=== PATIENT | female | born 1960 | race Caucasian/White ===

== ENCOUNTER 2019-12-31 17:58 | Emergency (ER) | payer BC, OTHER ==
[~2019-12-31] VITALS: Ht 162.5 cm; Wt 60.4 kg
--- NOTE | 2019-12-31 18:29 | ED GI ---
General Chief Complaint: Abdominal/GI Problems Stated Complaint: ABD PAIN, BLOODY STOOLS History of Present Illness Date Seen by Provider: Dec 31, 2019 Time Seen by Provider: 18:05 Initial Comments The patient is a 59-year-old female with a history of hypothyroidism and anxiety, without other chronic medical problems for which she takes daily medication. She did have an EGD completed in November per her report which was completely negative; reason for the EGD was ongoing issues with IBStype symptoms. She reports having had a colonoscopy 2 years ago which was negative aside from some degree of diverticulosis. She presents for evaluation of bloody stools with onset yesterday. Patient had one frankly bloody stool yesterday and then several more which had blood mixed in and were loose. Today she has had a couple of loose bowel movements with scant blood in them as well. She reports associated mild bilateral lower quadrant cramping (which feels like fecal urgency) before the stools, but no focal or persistent abdominal pain since onset of symptoms. She has no abdominal pain now. She denies associated fevers, nausea or vomiting, upper respiratory congestion/rhinorrhea, cough, shortness of breath or chest pain of any kind, focal abdominal pain of any kind as above, flank pain, back pain, dysuria or hematuria. Patient is alert and pleasantly and appropriately interactive and in absolute no acute distress with completely appropriate vital signs upon initial evaluation here in the emergency department. Allergies and Home Medications Allergies Coded Allergies: No Known Drug Allergies (Unverified , 12/31/19) Patient Home Medication List Home Medication List Reviewed: Yes Review of Systems Review of Systems Constitutional: see HPI All Other Systems Reviewed Negative Unless Noted: Yes Past Xbqlcyf-Gulsoj-Uxeafd Hx Past Med/Social Hx: Reviewed Nursing Past Med/Soc Hx Patient Social History Alcohol Use: Denies Use Recreational Drug Use: No Smoking Status: Current Everyday Smoker Type Used: Cigarettes 2nd Hand Smoke Exposure: No Recent Hopitalizations: No Physical Abuse: No Sexual Abuse: No Mistreated: No Fear: No Seasonal Allergies Seasonal Allergies: No Past Medical History Respiratory: No Cardiac: No Neurological: No Genitourinary: No Gastrointestinal: Yes Irritable Bowel Musculoskeletal: No Endocrine: No HEENT: No Cancer: No Psychosocial: Yes Anxiety Integumentary: No Blood Disorders: No Family Medical History Reviewed Nursing Family Hx Physical Exam Vital Signs Vital Signs - First Documented 12/31/19 18:03 Temp 36.2 Pulse 105 Resp 16 B/P (MAP) 139/66 (90) Pulse Ox 97 O2 Delivery Room Air Capillary Refill : Height/Weight/BMI Height: '" Weight: lbs. oz. kg; BMI Method: General Appearance: no apparent distress Exam Comments This is an older female appearing nontoxic and in no acute distress. Head is normocephalic and atraumatic. Neck is supple and nontender. Oropharynx is moist. Lungs are clear to auscultation at all stations. There is a normal S1 and S2 without rubs or gallops and capillary refill is appropriate, less than 2 seconds globally. Abdomen is soft, nontender and nondistended and without any rebound or guarding. Rectal examination with normal external and internal rectum on digital exam with no masses or lesions and no red blood and no melena and no acute abnormality seen. Skin is warm and dry without cyanosis, clubbing or edema. Psychiatrically, the patient demonstrates appropriate mood and affect and is alert. Progress/Results/Core Measures Results/Orders Lab Results Laboratory Tests Test 12/31/19 18:37 Range/Units White Blood Count 8.2 4.3-11.0 10^3/uL Red Blood Count 4.84 4.35-5.85 10^6/uL Hemoglobin 14.5 11.5-16.0 G/DL Hematocrit 41 35-52 % Mean Corpuscular Volume 86 80-99 FL Mean Corpuscular Hemoglobin 30 25-34 PG Mean Corpuscular Hemoglobin Concent 35 32-36 G/DL Red Cell Distribution Width 12.8 10.0-14.5 % Platelet Count 205 130-400 10^3/uL Mean Platelet Volume 9.3 7.4-10.4 FL Sodium Level 137 135-145 MMOL/L Potassium Level 3.9 3.6-5.0 MMOL/L Chloride Level 103 98-107 MMOL/L Carbon Dioxide Level 20 L 21-32 MMOL/L Anion Gap 14 5-14 MMOL/L Blood Urea Nitrogen 11 7-18 MG/DL Creatinine 0.81 0.60-1.30 MG/DL Estimat Glomerular Filtration Rate > 60 BUN/Creatinine Ratio 14 Glucose Level 104 70-105 MG/DL Calcium Level 8.9 8.5-10.1 MG/DL Corrected Calcium 9.1 8.5-10.1 MG/DL Total Bilirubin 0.3 0.1-1.0 MG/DL Aspartate Amino Transf (AST/SGOT) 16 5-34 U/L Alanine Aminotransferase (ALT/SGPT) 13 0-55 U/L Alkaline Phosphatase 86 40-136 U/L Total Protein 6.9 6.4-8.2 GM/DL Albumin 3.8 3.2-4.5 GM/DL My Orders Orders - MARK SARABIA MD Cbc No Diff (12/31/19 18:17) Comprehensive Metabolic Panel (12/31/19 18:17) Vital Signs/I&O 12/31/19 18:03 Temp 36.2 Pulse 105 Resp 16 B/P (MAP) 139/66 (90) Pulse Ox 97 O2 Delivery Room Air Progress Progress Note : Time: 18:29 Progress Note Very well-appearing 59-year-old female with a reassuring examination who presents for evaluation of largely painless rectal bleeding with onset yesterday. Sounds to have been active bleeding yesterday but no significant active bleeding today. Does have known diverticular disease. Abdominal examin ation is benign. We'll check basic labs and Hemoccult and we'll then reevaluate. If workup is reassuring, anticipate discharge home to follow up very closely with general surgery or gastroenterology for likely lower endoscopy and further care. Patient understands and agrees with this plan of care. 1910: Patient is resting comfortably in no acute distress upon reassessment. Basic labs wholly unremarkable and reassuring. Hemoccult negative. No evidence of any persistent active rectal bleeding at this time. Favor a self-limiting diverticular bleed as a cause for symptoms given history. Patient continues to have no focal abdominal pain. We'll proceed with discharge home as per plan above; patient is to follow-up with her primary care physician on Thursday to disc uss best next steps in care and we will provide referral information for Dr. Millan of [facility] so the patient may make an appointment to see him regarding lower endoscopy. Patient understands that if she feels worse is that of better, develops recurrent or worsening symptoms or has any other new symptoms of concern that she will need to return to the emergency department immediately for reevaluation. All questions are answered. Departure Impression Primary Impression: Hematochezia Disposition: HOME, SELF-CARE Condition: Stable Departure-Patient Inst. Referrals: STEPHANY MILLAN MAXWELL MD (PCP/Family) Primary Care Physician Patient Instructions: Bloody Stools, Gastrointestinal Bleeding Add. Discharge Instructions: Follow-up very closely with your primary care physician on Thursday in the office for a reevaluation of your symptoms and a discussion of next best steps in care. As we discussed, as you have recently had a reassuring upper endoscopy, you may benefit from a colonoscopy to further evaluate for a cause for your recent rectal bleeding. You may contact Dr. Millan's office (general surgeon at [facility]) to make an appointment to be seen to discuss a scope and other next steps regarding or bleeding. I recommend you call on Thursday. Return to the emergency department right away with worsening symptoms of any kind or with any other new symptoms of concern. MARK SARABIA MD Dec 31, 2019 18:29
[2019-12-31 18:46] LABS: HEMOGLOBIN 14.5 G/DL (11.5-16.0); MEAN PLATELET VOLUME 9.3 FL (7.4-10.4); WHITE BLOOD COUNT 8.2 10^3/uL (4.3-11.0)
[2019-12-31 19:07] LABS: ALANINE AMINOTRANSFERASE 13 U/L (0-55); ALBUMIN 3.8 GM/DL (3.2-4.5); ALKALINE PHOSPHATASE 86 U/L (40-136); BILIRUBIN,TOTAL 0.3 MG/DL (0.1-1.0); BUN/CREATININE RATIO 14; CALCIUM 8.9 MG/DL (8.5-10.1); CARBON DIOXIDE 20 MMOL/L (21-32); CHLORIDE 103 MMOL/L (98-107); CREATININE SERUM 0.81 MG/DL (0.60-1.30); GFR ESTIMATED > 60; GLUCOSE 104 MG/DL (70-105); POTASSIUM 3.9 MMOL/L (3.6-5.0); SODIUM 137 MMOL/L (135-145); TOTAL PROTEIN 6.9 GM/DL (6.4-8.2)
[2019-12-31 19:25] VITALS: BP 139/66
== END 2019-12-31 19:25 | disposition home or self-care (01) ==
LOC: EDUNIT# 17:58 → ER FS 18:00
DX: K92.1 Melena (principal); F17.210 Nicotine dependence, cigarettes, uncomplicated
CPT/HCPCS: 36415; 80053; 85027